=== PATIENT | female | born 1940 | race Caucasian/White ===

== ENCOUNTER → 2018-05-22 12:23 | Outpatient (CLI) | payer MEDICARE, OTHER, SELFPAY ==
--- NOTE | 2018-05-22 12:32 | BI_ITS ---
MAMMOGRAPHY - BILATERAL SCREENING 3-D LONNIE SYNTHESIS REASON FOR EXAM: Female, 77 years old. Bilateral Screening 3-D tomosynthesis PERTINENT HISTORY: Left breast current bruise from fall 2 days ago, marked with BB. No significant family history. TECHNIQUE: 2-D mammograms and 3-D Lonnie synthesis of the breast (s) were performed. CAD was performed. COMPARISON: 08/21/2016 through 04/17/2015. FINDINGS: The breast composition is almost entirely fat. No new significant architectural distortion, asymmetric density, abnormal microcalcification cluster, dominant mass, adenopathy, skin thickening or nipple retraction identified. Coarse benign-appearing calcifications. Left breast upper-outer quadrant metal BB noted without underlying or associated lesion identified. No significant abnormality identified with tomosynthesis. BI/SCREENING MAMM (CAD), BILAT IMPRESSION: No mammographic sign of malignancy. Routine yearly mammograms recommended. ASSESSMENT CATEGORY: BIRADS Category 2: Benign. A letter regarding these results will be sent to the patient by the facility within 30 days. FOLLOW UP RECOMMENDATION: Yearly follow up mammogram recommended. (A) Negative results should not deter biopsy as a palpable lesion if present should be followed on clinical grounds and biopsy performed if clinically persistent for 3 months or increasing size. Approximately 10% of breast cancers are not detected by mammography. A normal mammogram should not delay biopsy of a clinically suspicious abnormality. Electronically Signed: Andrew Grijalva, at 20:39 EDT Tel , Service support ,
== END ==
PROVIDERS: Family Provider Family Medicine; PCP Family Medicine; Visit Provider Obstetrics & Gynecology
DX: Z12.31 Encounter for screening mammogram for malignant neoplasm of breast (principal)
CPT/HCPCS: 77063; 77067

== ENCOUNTER 2018-10-11 21:28 | Emergency (ER) | payer MEDICARE, OTHER, SELFPAY ==
[2018-10-11 21:31] VITALS: BP 134/73; PULSE 99; RESP 18; TEMP 36.5; O2SAT 97; BMI 25.1
--- NOTE | 2018-10-11 22:46 | ED.DCSUM_ITS ---
- ER Visit Summary Date of Service: 10/11/18 Chief Complaint: Injuries to bilateral shins History of Present Illness: The patient is a 77 F who presents for soft tissue injuries to her bilateral shins. Patient was using a walker with a basket on it, and the walker fell over striking her across the anterior shins. She now has skin tears, right worse than left. Associated aching and burning pain. 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 She has mobile and was able to walk after the injury as well. Physical Examination: Patient is awake and alert, well-nourished and well-developed in no distress. Afebrile and hemodynamically stable. Examination of the lower extremities shows contusions to the anterior lower legs bilaterally with a 4 cm arcuate skin tear on the right mid cole, a 1 cm arcuate skin tear with flap in place on the lower right cole, and a 1 cm arcuate skin tear with the flap in place on the left lower cole. No deformities. Distal strength, motor and pulse intact. Remainder of exam unremarkable. Test Results: [] Emergency Department Course and Treatment: Patient's skin tears were cleansed and Steri-Stripped. The larger of old skin flap was able to be replaced and Steri-Stripped in place. Patient declined pain medication. She stated her tetanus was not up-to-date and thus tetanus was given. Patient is very concern ed about the recent hip replacement and these new injuries distal to her hip, and states she was told that she has any dental work done she needs to be on prophylactic antibiotics. We discussed that for these minor skin injuries, antibiotic prophylaxis is unlikely to be necessary, however patient has strong concerns about it. Thus patient was given a 7-day course of keflex empirically while her legs heal. Patient discharged home. Treatment Plan: [] Disposition: [] Impression: Skin tears to the bilateral lower legs This note was generated with [employer] dictation software. It may contain incorrect words, spelling, and punctuation that were not noted in review of the chart prior to signing ED Disposition - Plan for ED Patient: Disposition: Home or Assisted Living Chief Complaint: Wound Instructions: ED Avulsion Dermal Prescriptions: Cephalexin [Keflex] 500 mg PO Q6 #28 cap Referrals: NOT,DEFINED [NON-STAFF] - Additional Instructions: Follow-up with your surgeon for your postoperative evaluation as scheduled. Follow-up with your family doctor if you have any further concerns about your leg injuries. Your tetanus was updated today. If you have any worsening of your condition or any new concerning symptoms, please return immediately to the emergency department for another evaluation.
[2018-10-11 22:49] VITALS: BP 132/63; PULSE 85; RESP 17; O2SAT 97
[2018-10-11] MEDS: Cephalexin 250 MG Capsule 500 MG PO (22:52)
[2018-10-11] MEDS: Diphth,Pertuss(Acell),Tet Vac 0.5 ML Vial IM (22:52)
[2018-10-11 23:15] VITALS: BP 124/63; PULSE 89; RESP 16; O2SAT 98
== END 2018-10-11 23:16 | disposition home or self-care (01) ==
PROVIDERS: Emergency Provider Emergency Medicine
DX: S81.812A Laceration without foreign body, left lower leg, initial encounter (principal); S81.811A Laceration without foreign body, right lower leg, initial encounter; Z23 Encounter for immunization; W20.8XXA Other cause of strike by thrown, projected or falling object, initial encounter; Y93.89 Activity, other specified; Y92.89 Other specified places as the place of occurrence of the external cause; Y99.8 Other external cause status
CPT/HCPCS: 90471; 90715; 99282

== ENCOUNTER 2019-04-15 10:00 | Outpatient (RCR) | payer MEDICARE, OTHER, SELFPAY ==
--- NOTE | 2019-03-04 11:51 | HP.PTEVAL ---
Patient's Visit Information ANDRÉS GROVE is a 78 year old F referred to Physical Therapy by Jody Jorgensen MD with a diagnosis of Bilateral shoulder pain. Date of Evaluation: 03/04/19 Physical Therapist: Bhumi Singh DPT - Visit Plan Frequency: 2x /Week Duration: 6 Weeks Plan: Scapular s/s and postural education- US as modality of choice over shoulders NOT cervical spine secondary to fusion - Subjective Findings: RTC issues both sides- origionally started 20 years ago- goes to massotherapist who worked on them. But she is in the process of moving and going through things and now she is really sore. The left is worse than the right but both wake her up at night due to discomfort. The pain radiates to the fingers. They go numb- comes and goes. Some days are worse than others. Eases: massage,heat showers, biofreeze- shoulder rolls- but she is afraid to do anything and feels she needs guidance. Agg: reaching behind to get the seatbelt. Worst: 10/10 Best: 0/10. Has had x-rays of both shoulders and neck- had spinal fusion years ago- full of OA- 1982 or 1983. Pain is located in the shoulder blade and in the anterior shoulder and to the elbow. Sharp pains in the shoulder and dull and achy. No Cortisone injections- ibuprofen for years. Sleep:back sleeper at this point- not comfortable- wears a heating pad (turns off). Right hand dominate with eating/writting- does everything else left handed. 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 PMHx: cervical fusion, - Objective Posture: FH,RS, increased kyphosis- does correct with VC's but does not maintain. Gait: no deviation- good trunk rotation and arm swing. Palpation: tender along cervical spine from occiput to base of scapula, upper trap to the tip of the acromion and anterior shoulder. ROM: WFL in all planes but reports pain at end range flexion/abduction/IR on the left. Strength: Scap: poor, Shoulder: flexion/abd/IR: 4-/5, ER: 4/5 extn: 4/5, Elbow: 4+/5. Special Test: impingment: positive,Empty can: positive, compression: postitive. Sensation/Reflex: WNL - Goals Goal 1:: Patient will be I with HEP and progression Goal Time Frame: 4-6 Weeks Goal 2:: Patient will maintain proper posture t/o tx session to demo increased scap s/s. Goal Time Frame: 4-6 Weeks Goal 3:: Patient will report sleeping through the night for 1 week with 0/10 pain Goal Time Frame: 4-6 Weeks Goal 4:: Patient will report no n/t in the UE Goal Time Frame: 4-6 Weeks Goal 5:: patient will demo 4+/5 strength in shoulders Goal Time Frame: 4-6 Weeks - Rehabilitation Potential Physical Therapy Diagnosis: Patient presents with hypomobility- she has decreased painfree ROM, strength and muscular endurance leading to poor posture and increased pain with ADL's. Rehabilitation Potential: Fair - Anticipated Interventions Patient/Client Instruction: Educate patient on: Benefits of Fitness Program Therapeutic Exercise to Include: Strength training, Endurance training, Coordination, Agility training, Body mechanics, Postural training, Flexibilty training, Passive ROM, Active ROM, Scapular Strength/Stabilization For the Purpose of:: To improve muscle performance and motor function TENS: Yes Cryotherapy (ice pack, ice massage): Yes Thermo therapy (hot pack): Yes Ultrasound (thermal/non thermal): Yes - To shoulder- not over C-spine Fusion For the Purpose of:: To improve nutrient delivery to tissue Thank you for the opportunity to evaluate your patient. For Medicare and Medicare HMO plans, please review the plan of care and approve it. It will need to be FAXED BACK to us at [phone] for Medicare purposes. For Medicare only, by signing this I certify the plan of care. Please let me know if there are questions or concerns regarding this plan of care. Physician Signature: Date:
--- NOTE | 2019-04-01 13:47 | HP.PTREVAL ---
Jody Jorgensen MD, It has been my pleasure to treat ANDRÉS GROVE over the last 9 visits for Bilateral shoulder pain. Please see the progress note below for an update on the physical therapy plan of care! 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 She knows that she is loaded with OA. The left shoulder is a lot worse than the right shoulder Objective/Function: Posture: FH,RS, increased kyphosis-is more aware of posture throughout session. Gait: no deviation- good trunk rotation and arm swing. Palpation: tender along cervical spine from occiput to base of scapula, upper trap to the tip of the acromion and anterior shoulder Left>Right. ROM: WFL in all planes but reports pain at end range flexion/abduction/IR on the left. Strength: Scap: fair, Shoulder: flexion/abd/IR: 4/5, ER: 4/5 extn: 4/5, Elbow: 4+/5. Special Test: impingment: positive,Empty can: positive, compression: postitive. Sensation/Reflex: WNL Plan Plan: Continue with POC- slow down and back off repeititons and weights. NO overhead movements- stay below 90 degrees. Goals Goal 1:: Patient will be I with HEP and progression Goal Time Frame: 4-6 Weeks Goal Progress: Progressing Goal 2:: Patient will maintain proper posture t/o tx session to demo increased scap s/s. Goal Time Frame: 4-6 Weeks Goal Progress: Progressing Goal 3:: Patient will report sleeping through the night for 1 week with 0/10 pain Goal Time Frame: 4-6 Weeks Goal Progress: Progressing Goal 4:: Patient will report no n/t in the UE Goal Time Frame: 4-6 Weeks Goal Progress: Progressing Goal 5:: patient will demo 4+/5 strength in shoulders Goal Time Frame: 4-6 Weeks Goal Progress: Progressing Anticipated Interventions Patient/Client Instruction: Educate patient on: Benefits of Fitness Program Therapeutic Exercise to Include: Strength training, Endurance training, Coordination, Agility training, Body mechanics, Postural training, Flexibilty training, Passive ROM, Active ROM, Scapular Strength/Stabilization For the Purpose of:: To improve muscle performance and motor function TENS: Yes Cryotherapy (ice pack, ice massage): Yes Thermo therapy (hot pack): Yes Ultrasound (thermal/non thermal): Yes - To shoulder- not over C-spine Fusion For the Purpose of:: To improve nutrient delivery to tissue Please do not hesitate to contact me at [phone] by phone or if you have questions or concerns regarding this new plan of care! Sincerely, LUCERO BhatiaT
--- NOTE | 2019-06-29 11:49 | HP.PTDCNRP_ITS ---
HP - Discharge Summary (1) - Patient Information ANDRÉS GROVE was seen in my office for initial evaluation on 03/04/19. The following Plan of Care was established for this patient: Initial Frequency: 2x /Week Initial Duration: 6 Weeks - Anticipated Interventions Patient/Client Instruction: Educate patient on: Benefits of Fitness Program Therapeutic Exercise to Include: Strength training, Endurance training, Coord ination, Agility training, Body mechanics, Postural training, Flexibilty training, Passive ROM, Active ROM, Scapular Strength/Stabilization For the Purpose of:: To improve muscle performance and motor function TENS: Yes Cryotherapy (ice pack, ice massage): Yes Thermo therapy (hot pack): Yes Ultrasound (thermal/non thermal): Yes - To shoulder- not over C-spine Fusion For the Purpose of:: To improve nutrient delivery to tissue This patient was last seen in our office . Pertinent comments regarding their Physical therapy will appear below: At this point I will be discontinuing this patient from physical therapy. I would be happy to see this patient again in the future if found appropriate by the physician. Thank you! LUCERO BhatiaT
== END 2019-04-15 19:00 | disposition home or self-care (01) ==
LOC: PT 10:00
PROVIDERS: Family Provider Internal Medicine; PCP Internal Medicine; Referring Provider Internal Medicine; Visit Provider Internal Medicine
DX: M25.511 Pain in right shoulder (principal); M25.512 Pain in left shoulder
CPT/HCPCS: 97035; 97110; 97161; 97164

== ENCOUNTER → 2019-07-06 | Outpatient (CLI) | payer MEDICARE, OTHER, SELFPAY ==
--- NOTE | 2019-07-06 12:20 | BD_ITS ---
STUDY: DUAL ENERGY X-RAY ABSORPTIOMETRY / DXA REASON FOR EXAM: Female, 78 years old. The patient is postmenopausal. Loss of height. TECHNIQUE: Bone Mineral Density (BMD) measurements of lumbar spine and right hip were obtained. COMPARISON: Comparison is made with prior study dated May 21, 2017. FINDINGS: Lumbar Spine (L1-L4): g/cm2 (0.919) / T-score (-2.1) / Z-score (-0.3) Findings are suggestive of osteopenia with a moderate fracture risk. Right Femur Total: g/cm2 (0.889) / T-score (-0.9) / Z-score (1.0) Right Femoral Neck: g/cm2 (0.998) / T-score (-0.3) / Z-score (1.8) The T-Scores on the most recent prior examination were: Lumbar Spine (L1-L4): There has been improvement of bone density since the previous examination. Right Femur Total: which represents a worsening of 0.3%. BD/Dexa Bone Density Study IMPRESSION: The patient is considered osteopenic as outlined below according to World Jamie Organization (WHO) criteria with a moderate fracture risk. There has been worsening of bone density since the previous examination. Reference Information: The T-score is the number of standard deviations above or below the standard which is normal for young adults at their peak bone mineral density. The World Health Organization (WHO) interprets the T-scores as follows: Above -1 Normal bone density Between -1 and -2.5 Osteopenia Equal to / or below -2.5 Osteoporosis As a practical clinical guideline, osteopenia may be graded as follows: Mild -1 through -1.5 Moderate -1.6 through -2.0 Severe -2.1 through -2.4 The Z-score is the number of standard deviations above or below age-matched controls. A Z-score of less than -1.5 would be considered abnormal. References: 1. NIH Osteoporosis and Related Bone Diseases http://www.osteo.org 2. International Society for Clinical Densitometry http://www.iscd.org 3. National Osteoporosis Foundation http://www.nof.org Electronically Signed: Juvencio Lees, at 10:00 EDT , Service support ,
--- NOTE | 2019-07-06 12:27 | BI_ITS ---
MAMMOGRAPHY - BILATERAL SCREENING REASON FOR EXAM: Female, 78 years old. Routine annual screening examination. PERTINENT HISTORY: Non-contributory. TECHNIQUE: Digital bilateral breast lonnie (3D mammographic acquisition) in the CC and MLO projections. 2-D mediolateral oblique (MLO) and craniocaudad (CC) views of both breasts were obtained. CAD: Full Field Digital Mammography with Computer Added Detection was performed. COMPARISON: Comparison is made with prior study dated May 22, 2018 and August 21, 2016. FINDINGS: Breast Composition: The breasts are almost entirely fatty. There are no dominant masses or suspicious calcifications. Stable benign-appearing bilateral axillary lymph nodes. No other significant abnormalities are identified. There has been no significant change since the prior study. BI/SCREEN MAMM (CAD) W/LONNIE BILAT IMPRESSION: Stable bilateral screening mammogram. Yearly follow-up mammogram recommended. (A) ASSESSMENT CATEGORY: BIRADS Category 2: Benign. A letter regarding these results will be sent to the patient by the facility within 30 days. Approximately 10% of breast cancers are not detected by mammography. A normal mammogram should not delay biopsy of a clinically suspicious abnormality. [id number] Electronically Signed: Juvencio Lees, at 14:19 EDT , Service support ,
== END | disposition home or self-care (01) ==
LOC: OPBD 12:14
PROVIDERS: Family Provider Internal Medicine; PCP Internal Medicine; Referring Provider Obstetrics & Gynecology; Visit Provider Obstetrics & Gynecology
DX: M81.0 Age-related osteoporosis without current pathological fracture (principal); Z12.31 Encounter for screening mammogram for malignant neoplasm of breast
CPT/HCPCS: 77063; 77067; 77080

== ENCOUNTER → 2020-05-02 14:43 | Outpatient (CLI) | payer MEDICARE, OTHER, SELFPAY ==
[2020-05-02 16:23] LABS: Color, Urine Yellow (Yellow); Glucose, Dipstick Normal (Normal); Ketone-Dipstick Negative (Negative); Leukocyte Esterase-Dipstick Negative /ul (Negative); Nitrite-Dipstick Negative (Negative); Occult Blood-Urine Negative /ul (Negative); Protein-Dipstick Negative (Negative); Specific Gravity, Urine 1.005 (1.002-1.030); Urine Bilirubin Dipstick Negative (Negative); Urine Clarity Sl. Cloudy (Clear); Urine Urobilinogen Normal (Normal)
== END ==
PROVIDERS: PCP Internal Medicine; Visit Provider Obstetrics & Gynecology
DX: N39.0 Urinary tract infection, site not specified (principal); R30.0 Dysuria; N76.89 Other specified inflammation of vagina and vulva
CPT/HCPCS: 81002; 87086

== ENCOUNTER → 2022-10-05 | Outpatient (CLI) | payer MEDICARE, OTHER, SELFPAY ==
[2022-10-05 12:42] LABS: Absolute Lymphocyte Count 0.46 X10^3/uL (0.83-4.51); Absolute Neutrophil Count 4.1 X10^3/uL (2.0-7.7); Basophil# 0.03 X10^3/uL; Basophil% 0.5 % (0-1); Eosinophil# 0.46 X10^3/uL; Eosinophils% 8.2 % (0-5); Hematocrit 32.4 % (37-47); Hemoglobin 10.1 g/dL (12.0-15.0); Lymphocyte # 0.46 X10^3/ul (0.83-4.51); Lymphocyte % 8.2 % (19-41); Mean Corp Hgb Conc 31.2 g/dL (32-36); Mean Corpuscular Hgb 31.3 pg (27.0-32.0); Mean Corpuscular Volume 100.3 fL (81-99); Mean Platelet Vol. 9.8 fl (6.2-12.0); Monocyte# 0.49 X10^3/uL; Monocyte% 8.8 % (0-10); NRBC Flagged by Analyzer 0 % (0-5); Neutrophil % 73.6 % (47-70); POSITIVE DIFFERENTIAL YES; Platelet Count 322 K/mm3 (150-450); RBC Distribution Width CV 14.4 % (11.6-14.6); RBC Distribution Width SD 52.5 fl (35.1-43.9); Red Blood Count 3.23 M/mm3 (4.2-5.4); White Blood Count 5.6 K/mm3 (4.4-11.0)
[2022-10-05 12:45] LABS: ALB/GLOB Ratio 0.9 RATIO (0.9-2.4); AST(SGOT) 26 U/L (15-37); Alanine Aminotransfer ALT/SGPT 30 U/L (13-56); Albumin, Serum 3.5 g/dL (3.2-5.0); Alkaline Phosphatase 60 U/L (45-117); Anion Gap 7 (5-15); BUN 13 mg/dL (7-18); BUN/Creat Ratio 16.1 RATIO (10-20); Calcium,Total 8.9 mg/dL (8.5-10.1); Chloride 105 mmol/L (98-107); Creatinine, Serum 0.81 mg/dL (0.55-1.02); EST Glomerular Filtration Rate 72 mL/min (>60); Est Glom Filt Rate - Afr Amer 87 mL/min (>60); Globulin 3.8 g/dL (2.2-4.2); Glucose 110 mg/dL (74-106); Potassium 3.4 mmol/L (3.5-5.1); Protein, Total 7.3 g/dL (6.4-8.2); Sodium Level 137 mmol/L (136-145); Thyroid Stim Hormone (TSH) 1.43 uIU/mL (0.358-3.74)
[2022-10-05 12:49] LABS: Differential Indicated SCAN CRITERIA MET
[2022-10-05 13:28] LABS: BNP,B-Type NATRIURETIC PEPTIDE 170.9 pg/mL (0-100)
[2022-10-05 14:01] LABS: Differential Comment SCANNED
== END | disposition home or self-care (01) ==
LOC: LAB 10:11
PROVIDERS: PCP Internal Medicine; Visit Provider Internal Medicine
DX: R60.9 Edema, unspecified (principal)
CPT/HCPCS: 36415; 80053; 83880; 84443; 85025

== ENCOUNTER → 2022-10-07 | Outpatient (CLI) | payer MEDICARE, OTHER, SELFPAY ==
--- NOTE | 2022-10-07 13:48 | VDLE_ITS ---
Reason For Study: RLE SWELLING RIGHT LEFT GSV is normal. CFV is compressible, spontaneous, phasic, CFV is compressible, spontaneous, phasic, competent, and demonstrates normal competent and demonstrates normal augmentation. augmentation. FV is compressible, spontaneous, phasic, competent and demonstrates normal augmentation. POP V is compressible, spontaneous, phasic, competent and demonstrates normal augmentation. T/P Trunk is compressible. PTV is compressible. RT PerV is compressible. Procedure This is a venous duplex using B-mode, color flow and spectral Doppler. Exam performed in department. A preliminary report was called and/or faxed to Dr. Alonso @ 2:15 pm. VL/Venous Duplex US, Unilateral Interpretation Summary Deep veins of the right lower extremity are patent and compressible segmentally . There is no evidence of right lower extremity deep vein thrombosis. Valvular competence jaelyn ears intact within the proximal deep venous system on the right . The right great saphenous vein a ppears patent and compressible segmentally. Ordering Physician: Katrin Alonso Referring Physician: Katrin Alonso Performed By: Christiana West, RDCS, RVT
== END | disposition home or self-care (01) ==
LOC: CVS 13:47
PROVIDERS: PCP Internal Medicine; Visit Provider Internal Medicine
DX: M79.89 Other specified soft tissue disorders (principal)
CPT/HCPCS: 93971

== ENCOUNTER 2023-07-01 12:42 | Emergency (ER) | payer MEDICARE, OTHER, SELFPAY ==
[2023-07-01 12:44] VITALS: TEMP 36.6; BMI 21.7
[2023-07-01 12:50] VITALS: BP 203/102; PULSE 112; RESP 15
--- NOTE | 2023-07-01 13:44 | EKG12_ITS ---
Test Reason : HYPERTENSION Blood Pressure : / mmHG Vent. Rate : 083 BPM Atrial Rate : 083 BPM P-R Int : 164 ms QRS Dur : 110 ms QT Int : 394 ms P-R-T Axes : 050 001 116 degrees QTc Int : 462 ms Normal sinus rhythm Possible Anterior infarct , age undetermined ST & T wave abnormality, consider lateral ischemia Abnormal ECG Confirmed by MARCELINO GUERRERO, MAYNOR ([id number]), editor in chief newspaper FLORY CLEARY ([id number]) on 07/03/2023 1:41:12 PM Referred By: Confirmed By:MAYNOR BENSON MD
--- NOTE | 2023-07-01 13:45 | EDS_ITS ---
HPI History of Present Illness Chief Complaint: Hypertension Detail of Chief Complaint: Hypertension Informant: patient Narrative Narrative: Patient presents with concern for elevated blood pressure. She was being seen by primary care physician today in the office as she had had blood work recently and is scheduled to have her physical next week. It was noted the patient was hypertensive. EKG was obtained in the office which showed a left bundle branch block which is new when compared with prior EKG from 2013 per her primary care physician. Primary care physician called EMS and had patient come to the emergency department for evaluation. Patient tells me that several weeks ago she had an asthma attack that lasted about 3 weeks that required oxygen. She denies recent travel or surgery. She denies any chest pain. She denies headache. She otherwise feels well she states. She does not have a heart history and has never had stents. Patient does tell me that for last several weeks her blood pressure has been reading high at times with systolics as high as 190s and diastolics into the 90s. She does take her blood pressure medication regularly [facility] Medical History (Updated 07/01/23 @ 16:[address] Yolie Del Rio, ) Laceration of skin of left lower leg Lung disease Home Medications amlodipine 5 mg tablet (Norvasc) 5 mg PO DAILY #30 tabs 07/01/23 [Rx Last Taken Unknown] atorvastatin 10 mg tablet 10 mg PO DAILY PRN 07/01/23 [History Last Taken Unknown] fluticasone furoate 200 mcg-vilanterol 25 mcg/dose inhalation powder (Breo Ellipta) 1 inh inhalation Q24H 07/01/23 [History Last Taken Unknown] gentamicin 0.1 % topical ointment 1 applic topical BID 07/01/23 [History Last Taken Unknown] hydrochlorothiazide 25 mg tablet 25 mg PO DAILY 07/01/23 [History Last Taken Unknown] nintedanib 150 mg capsule (Ofev) 150 mg PO DAILY 07/01/23 [History Last Taken Unknown] potassium chloride 20 mEq tablet,extended release 20 meq PO BID 07/01/23 [History Last Taken Unknown] sertraline 50 mg tablet 25 mg PO Q24H PRN anxiety 07/01/23 [History Last Taken Unknown] Allergy/AdvReac Type Severity Reaction Status Date / Time Seasonal Allergies: Uncoded Allergy NEEDS Verified 02/27/23 15:49 FOLLOW-UP Milk Containing Products AdvReac Nausea/Vom/ Verified 02/27/23 15:49 (Dairy) Diarrhea [Milk Containing Products] Family History Father Renal disease Mother Alzheimer's dementia Surgical History History of hip replacement Social History Smoking Status: Never smoker alcohol intake: current alcohol intake frequency: a few times a week Alcohol type: wine ROS ROS ED ROS Narrative Hypertension Review of Systems ROS Unobtainable: other Constitutional Constitutional ED: Reports lethargy; Denies chills, fever(s), sweats or weight loss Eyes Eyes: Denies blurry vision, change in vision or diplopia ENT ENT ED: Denies rhinorrhea or sore throat Cardiovascular Cardiovascular: Denies chest pain, orthopnea or racing heartbeat Respiratory/Chest Respiratory/Chest: Reports dyspnea and dyspnea on exertion; Denies cough, orthopnea or sputum Gastrointestinal Gastrointestinal: Denies abdominal pain, diarrhea, nausea or vomiting Genitourinary Genitourinary ED: Denies dysuria, hematuria or urinary frequency Musculoskeletal Musculoskeletal: Denies arthralgias, back pain, myalgias or neck pain Integumentary Denies abscess, Abrasions or rash Neurologic Neurologic: Denies headache(s) or weakness Psychiatric Psychiatric: Denies anxiety, depression or suicidal thoughts Endocrine Endocrinology: Denies polydipsia, polyphagia or polyuria Hematologic/Lymphatic Hematologic/Lymphatic: Denies easy bleeding, easy bruising or lymphadenopathy Allergic/Immunologic Allergic/Immunologic ED: Denies mouth swelling, tongue swelling or urticaria EXAM Physical Exam Const Vital Signs: 07/01/23 12:44 07/01/23 12:48 07/01/23 12:50 Temperature 98 F Temperature Source Oral Pulse Rate 112 H Respiratory Rate 15 Respiratory Pattern Normal Blood Pressure 203/102 H Blood Pressure Mean 135 07/01/23 13:52 07/01/23 14:23 07/01/23 15:24 Temperature Temperature Source Pulse Rate 90 88 Respiratory Rate 18 20 H Respiratory Pattern Blood Pressure 175/94 H 178/94 H 155/99 H Blood Pressure Mean 121 122 117 Positive well nourished and well developed General Appearance ED: well developed and NAD HEENT Reports TM's clear and moist mucous membranes normocephalic and atraumatic; Negative for trauma or tenderness Tympanic Membrane ED: Yes TM's clear Eyes PERRL and EOMs intact bilaterally General Eye ED: Negative for pale conjunctiva or scleral icterus Neck no lymphadenopathy, supple and no JVD General: Negative for tenderness Chest Wall inspection of chest normal and palpation of chest normal Chest: Negative for tenderness Resp normal respiratory effort and clear to auscultation bilaterally Effort and Inspection: Negative for respiratory distress or pain with movement Auscultation: Negative for rhonchi, wheezes or diminished lung sounds Cardio regular rate, regular rhythm, S1 normal heart sound, S2 normal heart sound and no murmurs Peripheral Pulses: pulses 2+ throughout GI normal to inspection, nondistended, normoactive bowel sounds, soft to palpation, non-tender, non-distended and no masses Back/Spine no CVA tenderness and no thoracic nor lumbar tenderness Extremity normal to inspection General Extremety ED: Negative for edema General Extremity: Negative for edema Neuro oriented x3, CN's II-XII intact bilaterally, no sensory deficits noted and gait normal Sensorium / Orientation: awake, alert, oriented to person, oriented to place and oriented to time Motor Exam: strength 5/5 throughout and strength abnormal Psych mental status grossly normal Skin no rashes or lesions noted and no wounds MDM MDM MDM Narrative Medical decision making narrative: Presents with elevated blood pressures and abnormal EKG when compared to prior in PCPs office. Patient states she feels fine and really has no symptoms with the elevated blood pressures. She states that she started noticing an increase in BP approximately June 29. On arrival EKG obtained showed a sinus rhythm with a rate of [address] changes and incomplete left bundle. CBC with differential was unremarkable. Chemistries unremarkable other than a slightly depressed potassium at 3.3. I will give her 40 mEq of potassium chloride p.o. Troponin normal. D-dimer normal when corrected for age. Chest x-ray showed no acute disease process. Without any treatment and department her latest blood pressure was 140s over 113. She is asymptomatic. I discussed case with her primary care physician Dr. Alonso who recommended we start patient on Norvasc 5 mg daily on top of her current medication regimen. She will follow-up with the patient in the office next week. Patient comfortable with plan and will discharge to home in stable condition not feel patient is having acute coronary syndrome. Lab Data Attestation: I reviewed the patient's lab results. Labs: Laboratory Results - last 24 hr 07/01/23 12:44 WBC 8.6 RBC 4.04 L Hgb 13.0 Hct 40.7 MCV 100.7 H MCH 32.2 H MCHC 31.9 L RDW Std Deviation 47.8 H RDW Coeff of Madelyn 12.9 Plt Count 315 MPV 10.6 Immature Gran % (Auto) 0.100 Neut % (Auto) 81.9 H Lymph % (Auto) 8.6 L Gonzales % (Auto) 7.0 Eos % (Auto) 2.0 Baso % (Auto) 0.4 Absolute Neuts (auto) 7.0 Absolute Lymphs (auto) 0.74 L Nucleated RBC % 0 D-Dimer Quant (PE/DVT) 0.52 H* Sodium 131 L Potassium 3.3 L Chloride 95 L Carbon Dioxide 26.0 Anion Gap 10 BUN 16 Creatinine 1.11 H Estim Creat Clear Calc 30.91 Est GFR (MDRD) Af Amer 60 Est GFR (MDRD) Non-Af 50 L BUN/Creatinine Ratio 14.4 Glucose 109 H Calcium 9.7 Troponin I High Sens 7 Radiography Diagnostic Testing: Clinical Impression(s) from Imaging Studies Chest X-Ray 07/01/23 14:02 IMPRESSION: No acute cardiopulmonary process identified. Chronic interstitial lung disease. Electronically Signed: Modesta Calero MD at 14:16 EDT Reading Location ID and State: [facility] / [place] Tel , Service support , View chest x-ray obtained interpreted by myself as no evidence of infiltrate or pneumothorax or acute disease process. Radiology in agreement felt there was chronic interstitial lung disease. EKG Initial EKG: Attestation: I personally reviewed and interpreted this EKG as follows: Comments: Sinus rhythm with a rate of [address] changes Discharge Plan Triage Chief Complaint: Hypertension ED Provider: Yolie Del Rio Dx/Rx/DC Orders Clinical Impression: HTN (hypertension) Instructions: ED Hypertension, Established Prescriptions: New amlodipine [Norvasc] 5 mg tablet 5 mg PO DAILY Qty: 30 0RF No Action atorvastatin 10 mg tablet 10 mg PO DAILY PRN Patient Comments: take 1 tablet by mouth once daily hydrochlorothiazide 25 mg tablet 25 mg PO DAILY Patient Comments: take 1 tablet by mouth once daily sertraline 50 mg tablet 25 mg PO Q24H PRN (Reason: anxiety) Patient Comments: take 1/2 tablet by mouth once daily for 2 weeks then INCREASE to 1 tablet by mouth once daily gentamicin 0.1 % ointment 1 applic TOPICAL BID Patient Comments: APPLY TOPICALLY TO AFFECTED AREAS twice a day potassium chloride 20 mEq tablet extended release 20 meq PO BID Patient Comments: take 1 tablet by mouth twice a day fluticasone furoate-vilanterol [Breo Ellipta] 200-25 mcg/dose blister with device 1 inh INHALATION Q24H Patient Comments: inhale 1 puff by mouth DIRECTED once daily Ofev 150 mg capsule 150 mg PO DAILY Primary Care Provider: Katrin Alonso Referrals: Katrin Alonso MD [Primary Care Provider] - 5-7 Days Disposition Disposition: Home, Self Care
--- NOTE | 2023-07-01 13:48 | NURSING ---
NO OLD EKGS
[2023-07-01 13:52] VITALS: BP 175/94; PULSE 90; RESP 18
[2023-07-01] MEDS: 0.9% Normal Saline (1000mL) 1,000 ML 150 ML IV (13:58)
--- NOTE | 2023-07-01 14:02 | RAD_ITS ---
HISTORY: dyspnea. TECHNIQUE: XR Chest 1 View. COMPARISON: 08/13/2022. FINDINGS: CARDIOMEDIASTINAL BORDERS: Cardiac silhouette within normal limits in size. Mediastinal contour unchanged with calcification of the aortic knob. LUNGS: Mild chronic peripheral interstitial opacities in the lungs without focal consolidation. PLEURA: No pleural effusion or pneumothorax seen. OSSEOUS STRUCTURES: Degenerative change. Chronic T11 compression fracture. RAD/Chest 1 View (Portable) IMPRESSION: No acute cardiopulmonary process identified. Chronic interstitial lung disease. Electronically Signed: Modesta Calero MD at 14:16 EDT ,
[2023-07-01 14:13] LABS: Absolute Lymphocyte Count 0.74 X10^3/uL (0.83-4.51); Basophil# 0.03 X10^3/uL; Basophil% 0.4 % (0-1); Eosinophil# 0.17 X10^3/uL; Hematocrit 40.7 % (37-47); Lymphocyte # 0.74 X10^3/ul (0.83-4.51); Lymphocyte % 8.6 % (19-41); Mean Corp Hgb Conc 31.9 g/dL (32-36); Mean Corpuscular Hgb 32.2 pg (27.0-32.0); Mean Corpuscular Volume 100.7 fL (81-99); Mean Platelet Vol. 10.6 fl (6.2-12.0); NRBC Flagged by Analyzer 0 % (0-5); Neutrophil # 7.02 X10^3/uL (2.7-7.7); Neutrophil % 81.9 % (47-70); Platelet Count 315 K/mm3 (150-450); RBC Distribution Width CV 12.9 % (11.6-14.6); RBC Distribution Width SD 47.8 fl (35.1-43.9); Red Blood Count 4.04 M/mm3 (4.2-5.4); White Blood Count 8.6 K/mm3 (4.4-11.0)
[2023-07-01 14:23] VITALS: BP 178/94
[2023-07-01 14:24] LABS: D-Dimer Quantitative (DVT/PE) 0.52 FEU/ug/m (0.27-0.49)
[2023-07-01 14:42] LABS: Anion Gap 10 (5-15); BUN 16 mg/dL (7-18); BUN/Creat Ratio 14.4 RATIO (10-20); Calcium,Total 9.7 mg/dL (8.5-10.1); Chloride 95 mmol/L (98-107); Creatinine, Serum 1.11 mg/dL (0.55-1.02); EST Glomerular Filtration Rate 50 mL/min (>60); Est Glom Filt Rate - Afr Amer 60 mL/min (>60); Estimated Creatinine Clearance 30.91 ml/min; Glucose 109 mg/dL (74-106); Potassium 3.3 mmol/L (3.5-5.1); Sodium Level 131 mmol/L (136-145); Troponin-I HS 7 pg/mL (3.0-54.0)
[2023-07-01 15:24] VITALS: BP 155/99; PULSE 88; RESP 20
[2023-07-01 16:26] VITALS: RESP 16
== END 2023-07-01 16:27 | disposition home or self-care (01) ==
PROVIDERS: Emergency Provider Emergency Medicine; PCP Internal Medicine; Visit Provider Emergency Medicine
DX: I10 Essential (primary) hypertension (principal); Z79.899 Other long term (current) drug therapy
CPT/HCPCS: 71045; 80048; 84484; 85025; 85379; 93005; 99285; J7030

== ENCOUNTER 2023-09-07 03:54 | Emergency (ER) | payer MEDICARE, OTHER, SELFPAY ==
[2023-09-07 03:56] VITALS: BP 162/85; PULSE 75; RESP 22; TEMP 37; O2SAT 96; BMI 23.7
[2023-09-07 04:01] VITALS: BP 151/80; PULSE 86; RESP 22; TEMP 37; O2SAT 92
--- NOTE | 2023-09-07 04:06 | RAD_ITS ---
INDICATION: Trauma EXAMINATION/TECHNIQUE: X-RAY - XR Ribs Unilateral W/ PA Chest Min 3 Views frontal chest with 2 view right rib series COMPARISON: CT chest on same day. FINDINGS: SOFT TISSUES: No soft tissue swelling or gas. Aortic atherosclerosis. BONES: Right lateral eighth , ninth, 10th rib fractures with mild angulation. Additional posterior right ninth, 10th, 11th rib fracture. No sclerotic or destructive changes observed. VISUALIZED LUNGS: Trace right lateral superior pneumothorax better seen on subsequent CT. Mild atelectasis in the right lateral upper lung. Mild diffuse interstitial coarsening. Elevated right hemidiaphragm.. RAD/Ribs Uni Min 3V w/PA Chest IMPRESSION: Right 9th, 10th and 11th rib fractures with trace pneumothorax. Electronically Signed: Zane Escobar MD at 6:32 EST ,
--- NOTE | 2023-09-07 04:06 | RAD_ITS ---
INDICATION: Trauma EXAMINATION/TECHNIQUE: X-RAY - XR Spine Lumbar 2 or 3 Views COMPARISON: Hip radiograph on same. FINDINGS: VERTEBRAE: Preserved vertebral body height. Partial lumbarization of S1. Levels numbered accordingly. Severe facet arthropathy L5-S1 with grade 1 anterolisthesis. Chronic anterior compression deformity at T11. Multilevel lower thoracic endplate degenerative change. No lumbar fracture or compression deformity. Preservation of the normal lumbar lordosis. Right superior pubic ramus fractures better assessed on hip radiograph. Sclerosis left sacral wing as can be seen with age indeterminate insufficiency fracture. Left hip arthroplasty. DISCS: Scattered mild lower thoracic and lumbar disc height loss. INCLUDED ABDOMEN: Included bowel gas pattern is non-obstructive. Diffuse aortic atherosclerosis. RAD/Lumbar Spine 2 or 3 Views IMPRESSION: No evidence of lumbar spinal fracture or spondylolisthesis. Chronic lower thoracic compression deformity. Moderate spondylosis with mild degenerative listhesis at L5-S1. Partial lumbarization of S1. Right pelvic fractures better assessed on hip radiograph. Electronically Signed: Zane Escobar MD at 6:18 EST ,
--- NOTE | 2023-09-07 04:09 | EDS_ITS ---
HPI History of Present Illness Chief Complaint: Back Informant: patient and family Narrative Narrative: Patient presents after a fall at home. Patient states she slipped on some slippers she was wearing it about 12 hours ago at home. Landed on her right side. She was in too much discomfort to get up. She complains of pain on her back on the right side. She is not on blood thinners. She never hit her head. Was never syncopal. She has not been sick recently. She states this was a mechanical fall and she just could not get up. She got hold of family. Came up and called EMS. [facility] Medical History IBS (irritable bowel syndrome) Laceration of skin of left lower leg Lung disease Pulmonary fibrosis Home Medications atorvastatin 10 mg tablet 10 mg PO DAILY PRN 07/01/23 [History Last Taken Unknown] fluticasone furoate 200 mcg-vilanterol 25 mcg/dose inhalation powder (Breo Ellipta) 1 inh inhalation Q24H 07/01/23 [History Last Taken Unknown] hydrochlorothiazide 25 mg tablet 25 mg PO DAILY 07/01/23 [History Last Taken Unknown] nintedanib 150 mg capsule (Ofev) 150 mg PO DAILY 07/01/23 [History Last Taken Unknown] potassium chloride 20 mEq tablet,extended release 20 meq PO BID 07/01/23 [History Last Taken Unknown] sertraline 50 mg tablet 25 mg PO Q24H PRN anxiety 07/01/23 [History Last Taken Unknown] amlodipine 5 mg tablet (Norvasc) 5 mg PO DAILY #90 tabs 07/23/23 [Rx Last Taken Unknown] olmesartan 20 mg tablet 20 mg PO DAILY 07/23/23 [History Last Taken Unknown] Allergy/AdvReac Type Severity Reaction Status Date / Time Seasonal Allergies: Uncoded Allergy NEEDS Verified 09/07/23 03:55 FOLLOW-UP Milk Containing Products AdvReac Nausea/Vom/ Verified 09/07/23 03:55 (Dairy) Diarrhea [Milk Containing Products] Family History Father Renal disease Mother Alzheimer's dementia Surgical History History of hip replacement Social History Smoking Status: Never smoker alcohol intake: current alcohol intake frequency: a few times a week Alcohol type: wine ROS ROS ED Constitutional Constitutional ED: Denies chills or fever(s) Eyes Eyes: Denies change in vision ENT ENT ED: Denies rhinorrhea Cardiovascular Cardiovascular: Reports other Details: Pain on the right lateral chest wall. This is really what she is describing is back pain. Most of it is really in the lower rib area. ; Denies palpitations Respiratory/Chest Respiratory/Chest: Reports other Details: Denies being short of breath. But if she takes a real deep breath it does hurt in her back. But any motion also hurts there. ; Denies cough or dyspnea Gastrointestinal Gastrointestinal: Denies nausea or vomiting Genitourinary Genitourinary ED: Denies hematuria Musculoskeletal Musculoskeletal: Reports back pain; Denies neck pain Integumentary Denies rash Neurologic Neurologic: Denies headache(s) Endocrine Endocrinology: Denies polydipsia or polyuria Hematologic/Lymphatic Hematologic/Lymphatic: Denies easy bleeding or easy bruising Allergic/Immunologic Allergic/Immunologic ED: Denies urticaria EXAM Physical Exam Narrative Exam Narrative: General: Patient is awake alert appropriate. Family states she is acting normally. HEENT: No sign of trauma at all. Mucous membranes are moist. Neck is supple and no pain with motion. Heart is regular. No murmur gallop or rub. Chest does show some clear lungs. I do not hear rhonchi. Saturations are normal at 96% on room air. The patient does have tenderness mostly on the lateral chest wall in the posterior lateral area in line with the posterior axillary line. But there is no bruising or subcu air. But this is her main area of pain. Back patient does have some tenderness in the lower back near that was ribs and upper lumbar area. But no tenderness in the lower lumbar upper thoracic or cervical spine. Patient does not have any tenderness upper extremities. Lower extremities are not tender. No shortening or external rotation. But she states if she moves her legs it does hurt in the back more if she is moving her right than the left. Pelvis seems stable to AP and lateral compression. Neurologically she is awake alert and appropriate. No distal weakness or numbness within limitations of pain. Moving significantly does cause pain. Const Vital Signs: 09/07/23 03:56 11/19/23 04:01 09/07/23 06:48 Temperature 98.6 F 98.6 F Temperature Source Oral Oral Pulse Rate 75 86 88 Respiratory Rate 22 H 22 H 16 Blood Pressure 162/85 H 151/80 H 141/72 H Blood Pressure Mean 110 103 95 Pulse Ox 96 92 100 Oxygen Delivery Method Room Air Room Air Room Air MDM MDM MDM Narrative Medical decision making narrative: Independent interpretation of the patient's three-view x-ray of the right ribs do show multiple fractures. On one of the views there may be a small pneumothorax. We will see this better on CT. But her oxygen saturations are good and she is not dyspneic. Independent interpretation of the patient's three-view x-ray of the lumbar spine shows increased lordosis. 1 can see signs of a superior pubic rami fracture also. Independent interpretation of three-view x-ray of the right hip does show superior and inferior pubic rami fracture. CBC shows elevated white count at 16.8 this may be due to to pain and demargination also as she has no symptoms of infection. Hemoglobin is mildly low at 10.9. Platelets are normal. Patient's electrolytes are normal other than slight elevation in the BUN and creatinine and minimally dropped sodium. Glucose is up just slightly at 250 seen. Liver function test show no marked abnormalities. Total CK is 266. Although that this is elevated is not true rhabdomyolysis. With several fractures, possible pneumothorax we Will do CT of chest abdomen pelvis to make sure there is no other injuries and hopefully better define the bony injuries. There may be missing features and details in this report. I dictated this report. But due to problems with dragon it oftentimes did not record them. It mixed up lines and sentences. I could not copy and paste because that function does not work on this computer. I reviewed her CT independently and I discussed it with the radiologist. Patient has 4 rib fractures, trace pneumothorax, right superior inferior pubic rami fracture and a right posterior iliac wing fracture and possibly sacral fracture. I discussed this with our surgeon. But I agree that this patient could potentially worsen and she is best served at a trauma center. I then discussed the case with Dr. Thomson at [facility] who accepted patient in transfer. Patient has been quite stable here. We will put her on a bit of oxygen due to the small pneumothorax. But since she has been stable for over 18 hours, not hypoxic and this pneumothorax is trace I do not think we need to do a chest tube acutely. [facility] did request CT of the head and neck for complete evaluations. Lab Data Attestation: I reviewed the patient's lab results. Labs: Laboratory Results - last 24 hr 09/07/23 04:30 WBC 16.8 H RBC 3.35 L Hgb 10.9 L Hct 33.4 L MCV 99.7 H MCH 32.5 H MCHC 32.6 RDW Std Deviation 48.0 H RDW Coeff of Madelyn 13.2 Plt Count 301 MPV 9.8 Immature Gran % (Auto) 0.400 Neut % (Auto) 95.5 H Lymph % (Auto) 1.7 L Archuleta % (Auto) 2.3 Eos % (Auto) 0.0 Baso % (Auto) 0.1 Absolute Neuts (auto) 16.1 H Absolute Lymphs (auto) 0.29 L Nucleated RBC % 0 Differential Comment SCANNED Sodium 134 L Potassium 3.6 Chloride 101 Carbon Dioxide 22.0 Anion Gap 11 BUN 27 H Creatinine 1.30 H Estim Creat Clear Calc 25.18 Est GFR (MDRD) Af Amer 50 L Est GFR (MDRD) Non-Af 42 L BUN/Creatinine Ratio 20.8 H Glucose 215 H Calcium 8.9 Total Creatine Kinase 266 H Radiography Diagnostic Testing: Clinical Impression(s) from Imaging Studies Lumbar Spine X-Ray 09/07/23 04:06 IMPRESSION: No evidence of lumbar spinal fracture or spondylolisthesis. Chronic lower thoracic compression deformity. Moderate spondylosis with mild degenerative listhesis at L5-S1. Partial lumbarization of S1. Right pelvic fractures better assessed on hip radiograph. Electronically Signed: Zane Escobar MD at 6:18 EST , Ribs w/Chest X-Ray 09/07/23 04:06 IMPRESSION: Right 9th, 10th and 11th rib fractures with trace pneumothorax. Electronically Signed: Zane Escobar MD at 6:32 EST , Hip/Pelvis X-Ray 09/07/23 04:55 IMPRESSION: Displaced right superior and inferior pubic ramus fractures. Nondisplaced right posterior iliac wing fracture suggested. Vertical sclerosis and left sacral wing nonspecific but can be seen with insufficiency fracture. Severe right hip osteoarthritis. Electronically Signed: Zane Escobar MD at 6:13 EST , Chest/Abdomen/Pelvis CT 09/07/23 05:21 IMPRESSION: Right eighth, ninth, 10th, and 11th rib fractures with trace right pneumothorax. Scattered bilateral peripheral pulmonary fibrosis. Right superior and inferior pubic ramus fractures mild cephalad displacement. Also nondisplaced right posterior iliac wing fracture. Trace edema in the right anterior prevascular space without apparent active hemorrhage. Monitor clinically. Repeat CT may be obtained as clinically indicated. Vertical sclerosis through the left sacral wing suggestive nondisplaced insufficiency fracture Electronically Signed: Zane Escoabr MD at 6:51 EST , ADDENDUM: 09/07/23 0712 IMPRESSION: Right eighth, ninth, 10th, and 11th rib fractures with trace right pneumothorax. Scattered bilateral peripheral pulmonary fibrosis. Right superior and inferior pubic ramus fractures mild cephalad displacement. Also nondisplaced right posterior iliac wing fracture. Trace edema in the right anterior prevascular space without apparent active hemorrhage. Monitor clinically. Repeat CT may be obtained as clinically indicated. Vertical sclerosis through the left sacral wing suggestive nondisplaced insufficiency fracture N.B. : The above Results were Read Back by Zane Escobar MD to Jacinto Kim MD, and understanding confirmed on 09/07/2023 07:06:04 (ET). Electronically Signed: Zane Escobar MD at 6:51 EST , EKG Initial EKG: Comments: My independent interpretation of the patient's EKG shows a sinus rhythm with a rate of 84. No ventricular ectopy. Nonspecific ST and T wave changes. TN interval, QRS duration and QTc are normal. This is similar to 01 July 2023. Critical Care Time Critical Care Time: Yes Critical care time (excluding procedures): 30-74 minutes, Discussing w/Patient &/or Family/Scale Reclamation Tender, Discussing w/Consultants, Arranging Admission or Transfer, Performing Direct Patient Care at Bedside and - (45 minutes, multiple repeat evaluations, adding further studies, arranging transfer, discussing with patient and family) Discharge Plan Triage Chief Complaint: Back ED Provider: Jacinto Kim Dx/Rx/DC Orders Clinical Impression: History of pulmonary fibrosis, Multiple fractures of ribs, Fall at home, Closed fracture of right inferior pubic ramus, Closed fracture of right iliac wing, Closed fracture of right superior pubic ramus, Pneumothorax, right Prescriptions: No Action olmesartan 20 mg tablet 20 mg PO DAILY amlodipine [Norvasc] 5 mg tablet 5 mg PO DAILY Qty: 90 3RF atorvastatin 10 mg tablet 10 mg PO DAILY PRN Patient Comments: take 1 tablet by mouth once daily hydrochlorothiazide 25 mg tablet 25 mg PO DAILY Patient Comments: take 1 tablet by mouth once daily sertraline 50 mg tablet 25 mg PO Q24H PRN (Reason: anxiety) Patient Comments: take 1/2 tablet by mouth once daily for 2 weeks then INCREASE to 1 tablet by mouth once daily potassium chloride 20 mEq tablet extended release 20 meq PO BID Patient Comments: take 1 tablet by mouth twice a day fluticasone furoate-vilanterol [Breo Ellipta] 200-25 mcg/dose blister with device 1 inh INHALATION Q24H Patient Comments: inhale 1 puff by mouth DIRECTED once daily Ofev 150 mg capsule 150 mg PO DAILY Primary Care Provider: Katrin Alonso Referrals: Katrin Alonso MD [Primary Care Provider] - Disposition Disposition: Acute Care Hospital Discharge Location: [facility]
[2023-09-07] MEDS: Morphine 4 MG/ML Syringe IV (04:30)
[2023-09-07] MEDS: Ondansetron 4 MG/2 ML Vial IV (04:30)
[2023-09-07 04:50] LABS: Absolute Lymphocyte Count 0.29 X10^3/uL (0.83-4.51); Absolute Neutrophil Count 16.1 X10^3/uL (2.0-7.7); Basophil# 0.02 X10^3/uL; Basophil% 0.1 % (0-1); Hematocrit 33.4 % (37-47); Hemoglobin 10.9 g/dL (12.0-15.0); Lymphocyte # 0.29 X10^3/ul (0.83-4.51); Lymphocyte % 1.7 % (19-41); Mean Corp Hgb Conc 32.6 g/dL (32-36); Mean Corpuscular Hgb 32.5 pg (27.0-32.0); Mean Corpuscular Volume 99.7 fL (81-99); Mean Platelet Vol. 9.8 fl (6.2-12.0); Monocyte# 0.39 X10^3/uL; Monocyte% 2.3 % (0-10); NRBC Flagged by Analyzer 0 % (0-5); Neutrophil # 16.05 X10^3/uL (2.7-7.7); Neutrophil % 95.5 % (47-70); POSITIVE DIFFERENTIAL YES; Platelet Count 301 K/mm3 (150-450); RBC Distribution Width CV 13.2 % (11.6-14.6); Red Blood Count 3.35 M/mm3 (4.2-5.4); White Blood Count 16.8 K/mm3 (4.4-11.0)
[2023-09-07 04:53] LABS: Differential Indicated SCAN CRITERIA MET
--- NOTE | 2023-09-07 04:55 | RAD_ITS ---
INDICATION: Trauma EXAMINATION/TECHNIQUE: X-RAY - XR Hip Unilateral with Pelvis when performed; 2-3 Views COMPARISON: Lumbar spine radiograph same day and June 02, 2017 FINDINGS: PELVIC BONES: Right inferior and superior pubic ramus fracture with mild cephalad displacement. Oblique fracture through the right iliac wing. Mild sclerosis along the left sacral wing. Lower lumbar facet arthropathy. HIPS: Severe right hip osteoarthritis. Left hip arthroplasty without hardware failure in study [id number] SOFT TISSUES: No soft tissue swelling or gas. RAD/HIP, UNI W/ Pelvis 2-3 Views IMPRESSION: Displaced right superior and inferior pubic ramus fractures. Nondisplaced right posterior iliac wing fracture suggested. Vertical sclerosis and left sacral wing nonspecific but can be seen with insufficiency fracture. Severe right hip osteoarthritis. Electronically Signed: Zane Escobar MD at 6:13 EST ,
[2023-09-07 05:08] LABS: Anion Gap 11 (5-15); BUN 27 mg/dL (7-18); BUN/Creat Ratio 20.8 RATIO (10-20); Calcium,Total 8.9 mg/dL (8.5-10.1); Chloride 101 mmol/L (98-107); EST Glomerular Filtration Rate 42 mL/min (>60); Est Glom Filt Rate - Afr Amer 50 mL/min (>60); Estimated Creatinine Clearance 25.18 ml/min; Glucose 215 mg/dL (74-106); Potassium 3.6 mmol/L (3.5-5.1); Sodium Level 134 mmol/L (136-145)
[2023-09-07 05:19] LABS: CPK Total, Creatine Kinase 266 U/L (26-192)
--- NOTE | 2023-09-07 05:21 | CT_ITS ---
We are attempting to reach an attending provider to discuss findings. An addendum with communication details will be sent when the communication is complete. STUDY: CT CHEST, ABDOMEN T PELVIS WITH CONTRAST REASON FOR EXAM: Female, 82 years old. Trauma RADIATION DOSAGE (If Supplied By Facility): CTDIvol = ( 10.83 ) mGy, DLP = ( 970.90 ) mGycm TECHNIQUE: Transaxial imaging was performed following intravenous administration of IV 75mL [id number]-370. Individualized dose optimization techniques were used for this CT. COMPARISON: No relevant priors. FINDINGS: CHEST Subcentimeter thyroid nodules, likely benign given small size relative to age. Small right anterior pneumothorax, less than 5% lung volume. No left pneumothorax. Scattered bilateral peripheral fibrosis with mild honeycombing. No focal consolidation, contusion, or effusion. No cardiomegaly. No pericardial effusion. Mild coronary atherosclerosis. Aortic atherosclerosis without ectasia or dissection. Unremarkable pulmonary outflow tract amount angiogram exam. No mediastinal or hilar adenopathy. Unremarkable esophagus. Right eighth rib posterior lateral and lateral rib segmental fracture. Displaced right posterior ninth, nondisplaced posterior lateral ninth, and lateral ninth rib segmental fracture. Comminuted posterior right 10th and lateral 10th rib fracture. Nondisplaced right posterior 11th rib fracture. Chronic anterior compression deformity in the lower thoracic spine compare August 13, 2022 radiograph ABDOMEN PELVIS Normal liver. Normal gallbladder and extrahepatic biliary system. Normal spleen. Normal pancreas. Normal bilateral adrenal glands. Normal right kidney. Normal left kidney. No acute gastric finding. No small bowel distention or focal wall thickening. Normal appendix. No acute colonic finding. Scattered colonic diverticulosis without evidence of diverticulitis. . Aortic atherosclerosis without ectasia. Normal inferior vena cava. Normal retroperitoneum. Unremarkable uterus and adnexa. Unremarkable bladder. Trace right anterior prevascular edema without organized fluid collection or active bleeding. Right inferior and superior pubic ramus fractures. Right posterior iliac wing fracture, axial image 86. Vertical sclerosis along the left sacral wing concerning for insufficiency fracture. These lumbar spondylosis with degenerative grade 1 anterolisthesis L5 on S1 with lumbarization of S1. CT/CT Chest, Abd, Pel w/Contrast IMPRESSION: Right eighth, ninth, 10th, and 11th rib fractures with trace right pneumothorax. Scattered bilateral peripheral pulmonary fibrosis. Right superior and inferior pubic ramus fractures mild cephalad displacement. Also nondisplaced right posterior iliac wing fracture. Trace edema in the right anterior prevascular space without apparent active hemorrhage. Monitor clinically. Repeat CT may be obtained as clinically indicated. Vertical sclerosis through the left sacral wing suggestive nondisplaced insufficiency fracture Electronically Signed: Zane Escobar MD at 6:51 EST ,
[2023-09-07 05:34] LABS: Differential Comment SCANNED
[2023-09-07 06:48] VITALS: BP 141/72; PULSE 88; RESP 16; O2SAT 100
[2023-09-07] MEDS: 0.9% Normal Saline (500mL Bag) 500 ML 999 ML IV (06:56)
--- NOTE | 2023-09-07 07:36 | CT_ITS ---
EXAM: CT CERVICAL SPINE WITHOUT INTRAVENOUS CONTRAST CLINICAL INDICATION: trauma (patient had contrasted CT @ 0530) TECHNIQUE: Helically acquired images were obtained of the cervical spine without intravenous contrast. 2D reformatted images were reviewed. This CT exam was performed using one or more of the following dose reduction techniques: automated exposure control, adjustment of the mA and/or kV according to patient size, and/or use of iterative reconstruction technique. RADIATION DOSE: CTDIvol = 15.80 mGy, DLP = 310.73 mGy-cm COMPARISON: No relevant prior studies available. FINDINGS: VERTEBRAE: Straightening of the C-spine curvature. Mild degenerative anterolisthesis of C7 on T1. No discrete lytic or blastic abnormality. Normal vertebral body heights. DISCS/SPINAL CANAL/NEURAL FORAMINA: Anterior fusion of C5, C6 and C7 vertebral bodies from prior surgery. Moderate disc space height narrowing at C3-C4, C4-C5 and C7-T1 disc space levels. SOFT TISSUES: Mild calcification of the transverse ligament. No prevertebral soft tissue swelling. LYMPH NODES: Unremarkable. No cervical adenopathy. LUNG APICES: Unremarkable as visualized. Clear. CT/Spine Cervical without Contras IMPRESSION: 1. No CT evidence of acute fracture in the cervical spine, craniocervical junction and cervicothoracic junction. 2. Mild degenerative anterolisthesis of C7 on T1. Electronically Signed: Jay Sagastume MD at 8:26 EST ,
--- NOTE | 2023-09-07 07:36 | CT_ITS ---
EXAM: CT HEAD WITHOUT INTRAVENOUS CONTRAST CLINICAL INDICATION: trauma (patient had contrasted CT @ 0530) TECHNIQUE: Multiple axial images were obtained of the head without intravenous contrast. This CT exam was performed using one or more of the following dose reduction techniques: automated exposure control, adjustment of the mA and/or kV according to patient size, and/or use of iterative reconstruction technique. RADIATION DOSE: CTDIvol = 44.99 mGy, DLP = 779.24 mGy-cm COMPARISON: No relevant prior studies available. FINDINGS: BRAIN AND EXTRA-AXIAL SPACES: Mild contrast opacification of the dural sinuses and faint contrast opacification of both supraclinoid internal artery bifurcations, left more than right. They are residual contrast that was administered at 5:[address] abdomen and pelvis. No intra- or extra-axial hemorrhage. No evidence of acute infarct. No intracranial mass or mass effect. There is preservation of the castro/white matter interface. Posterior fossa structures are unremarkable. Ventricles are appropriate for age. No hydrocephalus. Basal cisterns are patent. BONES/JOINTS: Unremarkable. No discrete lytic or blastic abnormalities. VASCULATURE: Calcified plaques along the cavernous segments of both internal carotid arteries. SINUSES: Unremarkable as visualized. Clear. MASTOID AIR CELLS: Unremarkable. Clear. ORBITS: Visualized globes, extraocular muscles, optic nerves and retrobulbar fat appear unremarkable. CT/Brain/Head without Contrast IMPRESSION: No CT evidence of intracranial bleeding, acute ischemic infarct or acute intracranial abnormality. Electronically Signed: Jay Sagastume MD at 8:23 EST ,
--- NOTE | 2023-09-07 07:45 | ED.RN ---
PT ACCEPTED AT [facility] ED DR. ALY LINCOLN ETA [id number]
[2023-09-07 08:00] VITALS: BP 133/97; PULSE 90; RESP 17; O2SAT 98
[2023-09-07] MEDS: Morphine 2 MG/ML Syringe IV ×2 (08:12→08:53)
--- NOTE | 2023-09-07 09:01 | ED.RN ---
report call attempted at this time. man answers the phone and states ok, what is your ETA? this nurse says i'm sorry? he says what is your ETA? ryan SINGH updated with time of ETA.
== END 2023-09-07 08:40 | disposition short-term general hospital (02) ==
PROVIDERS: Emergency Provider Emergency Medicine; PCP Internal Medicine; Visit Provider Emergency Medicine
DX: S22.49XA Multiple fractures of ribs, unspecified side, initial encounter for closed fracture (principal); S32.591A Other specified fracture of right pubis, initial encounter for closed fracture; S32.511A Fracture of superior rim of right pubis, initial encounter for closed fracture; S32.301A Unspecified fracture of right ilium, initial encounter for closed fracture; S27.0XXA Traumatic pneumothorax, initial encounter; W19.XXXA Unspecified fall, initial encounter
CPT/HCPCS: 70450; 71101; 71260; 72100; 72125; 73502; 74177; 80048; 82550; 85025; 93005; 96374; 96375; 96376; 99285; J7040; Q9967; A4216; J2405